=== PATIENT | male | born 2000 | race Hispanic/Latino ===

== ENCOUNTER 2019-09-01 02:24 | Emergency (ER) | payer SELFPAY ==
[2019-09-01] MEDS: HYDROcodone 7.5MG/APAP 325MG 1 EA TAB PO ONE (02:35)
[2019-09-01] MEDS ORDERED: SODIUM CHLORIDE 0.9% NEB 3 ML VIAL ONE (02:42)
[2019-09-01] MEDS ORDERED: predniSONE 20 MG TAB ONE (02:46)
[2019-09-01] MEDS: predniSONE 20 MG TAB PO ONE (02:46)
[2019-09-01] MEDS ORDERED: NEOMYCIN-BACITRACIN-POLYMYXIN 0.9 GM UD TOP ONE ×2 (02:48→03:33)
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
[2019-09-01 04:30] VITALS: BP 149/87; O2SAT 97
[2019-09-01 05:01] VITALS: TEMP 98.4
== END 2019-09-01 05:00 | disposition home or self-care (01) ==
LOC: ER 02:24
DX: T20.20XA Burn of second degree of head, face, and neck, unspecified site, initial encounter (principal); T20.211A Burn of second degree of right ear [any part, except ear drum], initial encounter; T24.211A Burn of second degree of right thigh, initial encounter; T31.0 Burns involving less than 10% of body surface; X01.8XXA Other exposure to uncontrolled fire, not in building or structure, initial encounter; Y92.9 Unspecified place or not applicable
CPT/HCPCS: A4216; J7512